=== PATIENT | male | born 1975 | race Caucasian/White ===

== ENCOUNTER 2017-09-25 08:34 | Emergency (ER) | payer OTHER ==
[2017-09-25 09:18] VITALS: BP 155/98
--- NOTE | 2017-09-25 09:33 | UC ---
FLU HPI - HPI Summary HPI Summary: pt c/o sudden onset of fever, chills, "sweats", body aches, cough, wheezing, sore throat - History of Current Complaint Chief Complaint: UCRespiratory Stated Complaint: FEVER SORE THROAT Time Seen by Provider: 09/25/17 09:18 Hx Obtained From: Patient Onset/Duration: Sudden Onset, Lasting Days Severity Currently: Moderate Severity Initially: Moderate Pain Intensity: 6 Associated Signs & Symptoms: Positive: Fever, Myalgia, Cough, Sore Throat, Nasal Congestion, Headache Related Hx: Possible Flu/Infectious Exposure - Allergy/Home Medications Allergies/Adverse Reactions: Allergies Allergy/AdvReac Type Severity Reaction Status Date / Time No Known Allergies Allergy Verified 09/25/17 09:10 Home Medications: Home Medications guaiFENesin [Mucinex] 600 mg PO BID PRN 09/25/17 [History Confirmed 09/25/17] PMH/Surg Hx/FS Hx/Imm Hx Previously Healthy: Yes Cardiovascular History: Hypertension - Surgical History Surgical History: None - Family History Known Family History: Positive: Hypertension - Social History Occupation: Employed Full-time Alcohol Use: Occasionally Substance Use Type: None Smoking Status (MU): Never Smoked Tobacco Have You Smoked in the Last Year: No Review of Systems Constitutional: Fever, Chills, Fatigue Skin: Negative Eyes: Negative ENT: Sore Throat Respiratory: Cough, Other - wheezing Cardiovascular: Negative Gastrointestinal: Negative Genitourinary: Negative Motor: Negative Neurovascular: Negative Musculoskeletal: Myalgia Neurological: Headache Psychological: Negative Is Patient Immunocompromised?: No All Other Systems Reviewed And Are Negative: Yes Physical Exam Triage Information Reviewed: Yes Appearance: Ill-Appearing Vital Signs: Initial Vital Signs Temp 98.8 F 09/25/17 09:13 Pulse 106 09/25/17 09:13 Resp 22 09/25/17 09:13 BP 155/98 09/25/17 09:13 Pulse Ox 99 09/25/17 09:13 Vital Signs Reviewed: Yes Eye Exam: Normal ENT: Positive: Nasal congestion Neck exam: Normal Respiratory: Positive: Wheezing Cardiovascular Exam: Normal Musculoskeletal Exam: Normal Neurological Exam: Normal Psychological Exam: Normal Skin Exam: Normal Diagnostics - Laboratory Diagnostic Studies Completed/Ordered: rapid flu: negative Flu Course/Dx - Course Course Of Treatment: Pt expressed concern for the onset of chills an dsweats. I discussed with him the posisbility this symptoms was resulting from the URI he currently had. I also asked him detailed [facility] questions, all were negative, he denied any other symptoms than nasal congestion, chills and occasional "sweats". - Differential Dx/Diagnosis Differential Diagnosis/HQI/PQRI: Influenza, Upper Respiratory Infection Provider Diagnoses: viral syndrome Discharge - Discharge Plan Condition: Stable Disposition: HOME Patient Education Materials: Viral Syndrome (ED) Forms: *Work Release Referrals: Hilario Ramesh MD [Primary Care Provider] - As Soon As Possible Additional Instructions: Please note that your Blood pressure is elevated at today's visit. Please follow up with your PCP or return to clinic as needed.
== END 2017-09-25 10:31 | disposition home or self-care (01) ==
LOC: UCCORT 08:34
DX: B34.9 Viral infection, unspecified (principal)
CPT/HCPCS: 87502; 99211; G0463